=== PATIENT | male | born 1965 | race Caucasian/White ===

== ENCOUNTER 2020-12-31 17:33 | Emergency (ER) | payer OTHER ==
[2020-12-31] MEDS: Adenosine 6 MG/2 ML SDV IVPUSH ONE ×6 (18:01→18:14)
[2020-12-31] MEDS: Adenosine 6 MG/2 ML SDV ONE ×4 (18:01→18:17)
[2020-12-31] MEDS: Adenosine 12 MG/4 ML SDV ONE ×2 (18:11→18:18)
[2020-12-31 18:37] LABS: ANION GAP 17.1 mEq/L (7-13); CHLORIDE,CL 104 mmol/L (98-107); SODIUM,NA 139 mmol/L (136-145)
--- NOTE | 2020-12-31 18:55 | EDM.PDOC ---
Scribed by Maria Eugenia Quinteros 12/31/20 [id number] for Desiree Negron NP ED HPI GENERAL MEDICAL PROBLEM - General Chief Complaint: Cardiovascular Problem Stated Complaint: HEART RACING Time Seen by Provider: 12/31/20 17:55 Source of Information: Reports: Patient, RN, RN Notes Reviewed History Limitations: Reports: No Limitations - History of Present Illness INITIAL COMMENTS - FREE TEXT/NARRATIVE: Patient is a 55-year-old male who presents to ER per POV with complaint of rapid heart rate. States he has had slight shortness of breath but no chest pain. States he has had palpitations and dizziness. Patient states he wore a monitor in October for a week and has not heard back. Patient states today he was doing soem heavy lifting/exertion when this started. Patient reports past medial history of cholesterol, increased blood pressure and diabetes. Onset: Today Duration: Getting Worse Location: Reports: Other (heart) Quality: Reports: Ache Severity: Severe Improves with: Reports: None Worsens with: Reports: None Associated Symptoms: Reports: No Other Symptoms - Related Data Allergies Allergy/AdvReac Type Severity Reaction Status Date / Time No Known Allergies Allergy Verified 12/31/20 18:12 ED ROS GENERAL - Review of Systems Review Of Systems: Comprehensive ROS is negative, except as noted in HPI. ED EXAM, GENERAL - Physical Exam Exam: See Below Exam Limited By: No Limitations General Appearance: Alert, WD/WN, No Apparent Distress Eye Exam: Bilateral Eye: EOMI, Normal Inspection, PERRL Ears: Normal External Exam, Normal Canal, Hearing Grossly Normal, Normal TMs Nose: Normal Inspection, Normal Mucosa, No Blood Throat/Mouth: Normal Inspection, Normal Lips, Normal Teeth, Normal Gums, Normal Oropharynx, Normal Voice, No Airway Compromise Head: Atraumatic, Normocephalic Neck: Normal Inspection, Supple, Non-Tender, Full Range of Motion Respiratory/Chest: No Respiratory Distress, Lungs Clear, Normal Breath Sounds, No Accessory Muscle Use, Chest Non-Tender Cardiovascular: Tachycardia GI/Abdominal: Normal Bowel Sounds, Soft, Non-Tender, No Organomegaly, No Distention, No Abnormal Bruit, No Mass (Male) Exam: Deferred Rectal (Males) Exam: Deferred Back Exam: Normal Inspection, Full Range of Motion, NT Extremities: Normal Inspection, Normal Range of Motion, Non-Tender, Normal Capillary Refill, No Pedal Edema Neurological: Alert, Oriented, CN II-XII Intact, Normal Cognition, Normal Gait, Normal Reflexes, No Motor/Sensory Deficits Psychiatric: Normal Affect, Normal Mood Skin Exam: Warm, Dry, Intact, Normal Color, No Rash Lymphatic: No Adenopathy #1 Interpretation EKG Date: 12/31/20 Time: 17:57 Rhythm: Other (sinus tachycardia) Rate (Beats/Min): 161 EKG Interpretation Comments: repolarization abnormality probably rate related. Course - Vital Signs Last Recorded V/S: Last Vital Signs Temp 97.2 F 12/31/20 17:48 Pulse 163 H 12/31/20 17:48 Resp 16 12/31/20 17:48 BP 107/81 12/31/20 17:48 Pulse Ox 99 12/31/20 17:48 - Orders/Labs/Meds Orders: Active Orders 24 hr Category Date Time Status EKG Documentation Completion [RC] STAT Care 12/31/20 18:22 Active Labs: Laboratory Tests 12/31/20 12/31/20 Range/Units 17:58 17:58 WBC 9.3 (5.0-10.0) 10^3/uL RBC 4.93 (4.6-6.2) 10^6/uL Hgb 15.0 (14.0-18.0) g/dL Hct 43.4 (40.0-54.0) % MCV 88.0 (80-100) fL MCH 30.4 (27.0-34.0) pg MCHC 34.6 (33.0-35.0) g/dL Plt Count 227 (150-450) 10^3/uL Neut % (Auto) 53.5 (42.2-75.2) % Lymph % (Auto) 31.6 (20.5-50.1) % [place] % (Auto) 10.3 H (2-8) % Eos % (Auto) 4.0 H (1.0-3.0) % Baso % (Auto) 0.6 (0.0-1.0) % Sodium 139 (136-145) mmol/L Potassium 4.1 (3.5-5.1) mmol/L Chloride 104 (98-107) mmol/L Carbon Dioxide 22 (21-32) mmol/L Anion Gap 17.1 H (7-13) mEq/L BUN 19 H (7-18) mg/dL Creatinine 1.08 (0.70-1.30) mg/dL Est Cr Clr Drug Dosing 86.31 mL/min Estimated GFR (MDRD) > 60 BUN/Creatinine Ratio 17.6 (No establ ref range) Glucose 182 H (70-99) mg/dL Calcium 8.4 L (8.5-10.1) mg/dL Total Bilirubin 0.7 (0.2-1.0) mg/dL AST 31 (15-37) U/L ALT 46 (16-63) U/L Alkaline Phosphatase 64 (46-116) U/L Troponin I High Sens 5 (<=76) pg/mL Total Protein 6.6 (6.4-8.2) g/dL Albumin 3.8 (3.4-5.0) g/dL Globulin 2.8 Albumin/Globulin Ratio 1.4 Meds: Medications Discontinued Medications Generic Name Dose Route Start Last Admin Trade Name Freq PRN Reason Stop Dose Admin Adenosine Confirm 12/31/20 18:01 12/31/20 18:17 Adenosine 6 Mg/2 Ml Sdv Administered 12/31/20 18:02 Not Given Dose 6 mg .ROUTE .STK-MED ONE Adenosine Confirm 12/31/20 18:05 12/31/20 18:17 Adenosine 6 Mg/2 Ml Sdv Administered 12/31/20 18:06 Not Given Dose 6 mg .ROUTE .STK-MED ONE Adenosine Confirm 12/31/20 18:10 12/31/20 18:18 Adenosine 12 Mg/4 Ml Sdv Administered 12/31/20 18:11 Not Given Dose 12 mg .ROUTE .STK-MED ONE Adenosine 6 mg 12/31/20 18:01 12/31/20 18:01 Adenosine 6 Mg/2 Ml Sdv IVPUSH 12/31/20 18:02 6 mg NOW ONE Administration Adenosine 6 mg 12/31/20 18:14 12/31/20 18:06 Adenosine 6 Mg/2 Ml Sdv IVPUSH 12/31/20 18:15 6 mg NOW ONE Administration Adenosine 12 mg 12/31/20 18:14 12/31/20 18:11 Adenosine 6 Mg/2 Ml Sdv IVPUSH 12/31/20 18:15 12 mg NOW ONE Administration Departure - Departure Time of Disposition: 18:51 Disposition: Home, Self-Care 01 Reason for Transfer *Q: Other Condition: Good Clinical Impression: SVT (supraventricular tachycardia) Instructions: Supraventricular Tachycardia, Adult, [id number] Forms: ED Department Discharge Additional Instructions: Return to the ER with any worsening of symptoms Follow up with your primary care facility regarding your Holter monitor Drink plenty of water Sepsis Event Note (ED) - Focused Exam Vital Signs: Vital Signs Temp Pulse Resp BP Pulse Ox 12/31/20 17:48 97.2 F 163 H 16 107/81 99 - My Orders Last 24 Hours: My Active Orders 12/31/20 18:22 EKG Documentation Completion [RC] STAT - Assessment/Plan Last 24 Hours: My Active Orders 12/31/20 18:22 EKG Documentation Completion [RC] STAT I have read and agree with the documentation that has been completed regarding this visit. By signing this record, I attest that the documentation was completed in my physical presence and is an accurate record of the encounter.
== END 2020-12-31 19:12 | disposition home or self-care (01) ==
LOC: DL.ED 17:33
DX: I47.1 Supraventricular tachycardia (principal)
CPT/HCPCS: 36415; 80053; 84484; 85025; 93010; 96374; 99284; 99285-25; J0153